=== PATIENT | female | born 1970 | race Caucasian/White ===

== ENCOUNTER 2022-08-24 20:45 | Emergency (ER) | payer OTHER, SELFPAY ==
--- NOTE | ~2022-08-24 | CT_ITS ---
EXAMINATION: CT lumbar spine wo con DATE: 08/24/2022 22:50 INDICATION: Lower back pain w/ leg weakness, hx sciatica . TECHNIQUE: Computed tomography (CT) of the lumbar spine was performed without intravenous contrast. A utomated exposure control and iterative reconstruction technique were employed. The dose-length produ ct was 1175.80 mGy-cm. COMPARISON: None. FINDINGS: Lumbar scoliosis. 5 nonrib-bearing lumbar-type vertebral bodies. Pedicles intact. Normal ve rtebral body alignment. Vertebral body heights preserved. Multilevel degenerative disc disease, sever e at L3-4 and L5-S1. Large lateral bridging osteophytes at L3-4. Multilevel facet arthropathy. Severe neural foraminal narrowing on the left at L3-4 and on the right at L5-S1. Moderate central canal keo nosis at L2-3. Severe central canal stenosis at L3-4 and L4-5. Right adrenal adenoma. Bilateral perin ephric stranding. IMPRESSION: No acute fracture or traumatic malalignment in the lumbar spine. Reviewed, dictated and finalized at location K. [employer] LINGUIST
[2022-08-24 20:50] VITALS: BP 158/107; PULSE 111; RESP 18; TEMP 37; O2SAT 98
--- NOTE | 2022-08-24 22:14 | ED.GENADULT ---
HPI - General Adult General Chief complaint: Extremity Problem,Nontraumatic Stated complaint: leg weakness, x 2 weeks sciatica Time Seen by Provider: 08/24/22 21:48 History of Present Illness HPI narrative: This is a 52-year-old female presenting ED with a chief complaint of lower back pain and leg weakness. Patient says that she had sciatica several weeks ago. Since then she has started to have difficulty while walking. She says when she walks her feet start to feel heavy and she gets a heavy feeling in her calves. The pain is alleviated by bending over and she can walk while pushing a wheelchair a grocery cart without any symptoms. Patient did have 1 episode walking in ED where she tripped due to the leg heaviness. Patient denies history of cancer, fever, chills, IV drug abuse, traumatic injury, urinary retention or bowel incontinence. She denies saddle anesthesia. Related Data Home Medications Medication Instructions Recorded Confirmed aspirin 81 mg tablet,delayed 81 mg PO DAILY 01/03/21 01/03/21 release (Adult Low Dose Aspirin) cholecalciferol (vitamin D3) 10 10 mcg PO DAILY 01/03/21 01/03/21 mcg (400 unit) capsule gabapentin 100 mg capsule 100 mg PO DAILY 01/03/21 01/03/21 lisinopril 20 mg tablet 20 mg PO DAILY 01/03/21 01/03/21 metformin 500 mg tablet 500 mg PO DAILY 01/03/21 01/03/21 elggbubthcrs-Kz-pzgx-minerals tablet PO 01/03/21 01/03/21 Allergies Allergy/AdvReac Type Severity Reaction Status Date / Time No Known Allergies Allergy Unknown Verified 08/24/22 20:47 Review of Systems Review of Systems: CONSTITUTIONAL: Denies night sweats. EYES: No eye pain ENT: Denies rhinorrhea CARDIOVASCULAR: Denies palpitations RESPIRATORY: Denies hemoptysis GASTROINTESTINAL: Denies hematemesis GENITOURINARY: Denies hematuria. SKIN: Denies rash MUSCULOSKELETAL: Denies myalgia. NEUROLOGIC: Denies weakness. PSYCHIATRIC: Denies delusions PMFSH Past Medical History Medical History Diabetes Essential hypertension Family History Family History Father Depression Hypertension Family history of alcoholism Family history of heart disease in male family member before age 55 Family history of coronary artery disease Heart disease Sibling Depression Hypertension Family history of alcoholism Family history of heart disease in male family member before age 55 Heart disease Mother Hypertension Family history of arthritis Grandparent Cancer Social History Social History Social History: vaping Smoking status: Former smoker Tobacco type: e-cigarettes/vaping Second hand tobacco smoke exposure: Yes Alcohol intake: current Alcohol use details: 2 per month Exam Narrative: APPEARANCE: No apparent distress. Head: atraumatic. EYES: EOMI, NOSE: Atraumatic NECK: Trachea midline RESPIRATORY: No increased rate of breathing CARDIOVASCULAR: RRR, ABDOMINAL: Non-distended MUSCULOSKELETAl: No obvious deformities NEURO: Alert. Cranial nerves 2-12 grossly intact. Sensation light touch, motor function cerebellar function intact for 4 extremities. patient has a marching gait. SKIN:: Warm, dry. Normal color PSYCHIATRIC: Normal affect Course Vital Signs Vital signs: Vital Signs Temperature 98.6 F 08/24/22 20:50 Pulse Rate 111 H 08/24/22 20:50 Respiratory Rate 18 08/24/22 20:50 Blood Pressure 158/107 H 08/24/22 20:50 Pulse Oximetry 98 08/24/22 20:50 Oxygen Delivery Room Air 08/24/22 20:50 Temperature 98.6 F 08/24/22 20:50 Pulse Rate 111 H 08/24/22 20:50 Respiratory Rate 18 08/24/22 20:50 Blood Pressure 158/107 H 08/24/22 20:50 Pulse Oximetry 98 08/24/22 20:50 Oxygen Delivery Room Air 08/24/22 20:50 Medical Decision Making [facility] Narrative Medical decision making narrative: This i
[2022-08-24 22:32] LABS: Basophils Percent Auto 0.4 % (0.2-1.2); Eosinophils Absolute Auto 0.1 K/mm3 (0-0.3); Hemoglobin 13.6 g/dL (12.0-15.0); Immature Granulocyte Absolute 0.03 K/mm3 (0.00-0.031); Immature Granulocyte Percent A 0.3 % (0-0.5); Lymphocytes Absolute Auto 2.43 K/mm3 (0.9-3.2); Lymphocytes Percent Auto 26.2 % (18.3-44.2); Mean Corpuscular HGB Conc 32.4 g/dl (32-36); Mean Corpuscular Hemoglobin 28.6 pg (26-34); Mean Corpuscular Volume 88.2 fl (80-100); Mean Platelet Volume 9.8 fl (7.4-10.4); Monocytes Absolute Auto 0.6 K/mm3 (0.1-0.6); Monocytes Percent Auto 6.6 % (2.6-8.5); Neutrophils Absolute Auto 6.1 K/mm3 (1.3-6.7); Neutrophils Percent Auto 65.5 % (45.5-73.1); Platelet Count Result 261 k/mm3 (150-375); Red Blood Count 4.76 M/mm3 (4.2-5.4); Red Cell Distribution Width 13.8 % (11.5-14.5); White Blood Count 9.3 K/mm3 (4.5-10.0)
[2022-08-24 22:43] LABS: Anion Gap 10 mmol/L (8-16); Blood Urea Nitrogen 17 mg/dL (7-17); Calcium 9.1 mg/dL (8.4-10.2); Carbon Dioxide 24 mmol/L (22-30); Chloride 103 mmol/L (98-107); Estimated Glomerular Filt Rate > 60; Glucose 219 mg/dL (65-110); Potassium 3.9 mmol/L (3.4-5.0); Prothrombin Time 12.7 Seconds (11.1-14.7); Sodium 137 mmol/L (137-145)
[2022-08-24 22:44] LABS: Partial Thromboplastin Time 21.9 SECONDS (22.3-36.8)
== END 2022-08-25 01:47 | disposition home or self-care (01) ==
PROVIDERS: Emergency Provider Emergency Medicine; PCP Internal Medicine
DX: M48.061 Spinal stenosis, lumbar region without neurogenic claudication (principal); I10 Essential (primary) hypertension; E11.9 Type 2 diabetes mellitus without complications; Z79.4 Long term (current) use of insulin; Z79.82 Long term (current) use of aspirin; Z87.891 Personal history of nicotine dependence
CPT/HCPCS: 36415; 72131; 80048; 83735; 85025; 85610; 85730; 99284

== ENCOUNTER 2022-08-27 14:39 | Emergency (ER) | payer OTHER, SELFPAY ==
[2022-08-27 15:02] VITALS: BP 150/72; PULSE 104; RESP 18; TEMP 36.7; O2SAT 98
--- NOTE | 2022-08-27 15:25 | ED.BACK ---
HPI - Back Pain/Injury General Chief Complaint: Back Pain/Injury Stated Complaint: back and bilateral leg pain Source: patient Mode of arrival: wheelchair Limitations: physical limitation History of Present Illness HPI Narrative: This is a 52 year old female that has been complaining of severe back pain and was in the emergency room 2 night ago and cT scan showed DJD and no acute fractures. Patient informed me that she received a call from Dr. Pozo's office and schedule an MRI call placed to Dr. Pozo's office and they scheduled an appointment for her to see them on September 24 she is on a waiting list to have any cancellations they will call her sooner. Patient states that her legs feel like they are shaky and she is very upset because she is not able to work and she needs the money. Patient is a nursing faculty at a residential when asked how I can help her patient informs me she needs me to make her be able to walk without any pain. Related Data Home Medications Medication Instructions Recorded Confirmed aspirin 81 mg tablet,delayed 81 mg PO DAILY 01/03/21 08/27/22 release (Adult Low Dose Aspirin) cholecalciferol (vitamin D3) 10 10 mcg PO DAILY 01/03/21 08/27/22 mcg (400 unit) capsule gabapentin 100 mg capsule 100 mg PO DAILY 01/03/21 08/27/22 lisinopril 20 mg tablet 20 mg PO DAILY 01/03/21 08/27/22 metformin 500 mg tablet 500 mg PO DAILY 01/03/21 08/27/22 aqupvmhhbzqf-Ee-oupt-minerals 1 tablet PO DAILY 01/03/21 08/27/22 Allergies Allergy/AdvReac Type Severity Reaction Status Date / Time No Known Allergies Allergy Unknown Verified 08/27/22 15:10 Review of Systems Review of Systems: leg pain All systems reviewed & are unremarkable except as noted in HPI and below PMFSH Past Medical History Medical History Diabetes Essential hypertension Family History Family History Father Depression Hypertension Family history of alcoholism Family history of heart disease in male family member before age 55 Family history of coronary artery disease Heart disease Sibling Depression Hypertension Family history of alcoholism Family history of heart disease in male family member before age 55 Heart disease Mother Hypertension Family history of arthritis Grandparent Cancer Social History Social History Social History: vaping Smoking status: Former smoker Tobacco type: e-cigarettes/vaping Second hand tobacco smoke exposure: Yes Alcohol intake: current Alcohol use details: 2 per month Comments At time as signature, I have reviewed and agree with nursing past medical, social, surgical and family history. Please see nursing chart for further information. There is no relevant family history pertinent to the presenting complaint. Exam Narrative: GENERAL: Dishevelled, well-nourished, and in no acute distress. HEAD:Normocephalic, atraumatic. EYES: PERRLA and EOMI. ENT: Nares clear, no rhinorrhea or epistaxis. Mucous membranes moist. CHEST: Clear to auscultation. No respiratory distress. HEART: Regular rate and rhythm Normal peripheral pulses. ABDOMEN: Soft, nontender, nondistended, normal active bowel sounds. EXTREMITIES:decreased range of motion. No edema. Pain that shoots up her body const down her leg and she is sitting in the chair especially the right side SKIN: Warm, dry, no rash. NEURO: No focal deficits. Alert and oriented x3. Course Course Level of Care: Express Care Visit Vital Signs Vital signs: Vital Signs Temperature 98.0 F 08/27/22 15:02 Pulse Rate 104 H 08/27/22 15:02 Respiratory Rate 18 08/27/22 15:02 Blood Pressure 150/72 H 08/27/22 15:02 Pulse Oximetry 98 08/27/22 15:02 Oxygen Delivery Room Air 08/27/22 15:02 Temperature 98.0 F 08/27/22 15:02 Pulse Rate 104 H 08/27
== END 2022-08-27 15:45 | disposition home or self-care (01) ==
PROVIDERS: Emergency Provider Nurse Practitioner Family
DX: M54.31 Sciatica, right side (principal); M54.9 Dorsalgia, unspecified; E11.9 Type 2 diabetes mellitus without complications; I10 Essential (primary) hypertension; Z79.82 Long term (current) use of aspirin; Z79.84 Long term (current) use of oral hypoglycemic drugs
CPT/HCPCS: 99213; G0463

== ENCOUNTER 2022-10-10 06:58 | Outpatient (CLI) | payer OTHER, SELFPAY ==
--- NOTE | ~2022-10-10 | MR_ITS ---
EXAMINATION: MR lumbar spine wo con DATE: 10/10/2022 07:35 INDICATION: Low back pain. Left leg numbness and heaviness. TECHNIQUE: Magnetic resonance imaging (MRI) of the lumbar spine was performed without intravenous con trast. Sequences included sagittal T2-weighted FSE, sagittal T2-weighted FS FSE, sagittal T1-weighted FSE, and axial T2-weighted FSE. COMPARISON: Lumbar spine CT 08/24/2022 FINDINGS: There is 13 degrees dextroscoliosis of lumbar spine. There is mild chronic anterior wedging of T11 and T12 vertebral bodies. There is mildly decreased disc height at L2-L3, severely decreased disc height at L3-L4, mildly decreased disc height at L4-L5, and severely decreased disc height at L5 -S1 with endplate remodeling. The distal spinal cord signal intensity is normal. The conus medullaris is at T12-L1. The following disc levels are specifically discussed: L1-L2: The disc is bulging. There is moderate right and mild left facet joint osteoarthritis. There i s mild bilateral neural foraminal stenosis. There is mild central canal stenosis. L2-L3: The disc is bulging and has an annular fissure. There is moderate bilateral facet joint osteoa rthritis. There is mild bilateral neural foraminal stenosis. There is mild central canal stenosis. L3-L4: The disc is bulging and has an annular fissure. There is severe bilateral facet joint osteoart hritis. There is mild right and moderate left neural foraminal stenosis. There is moderate central ca nal stenosis. There is asymmetric severe stenosis of left lateral recess. L4-L5: The disc is bulging with superimposed central extrusion. There is severe bilateral facet joint osteoarthritis. There is moderate right and mild left neural foraminal stenosis. There is mild centr al canal stenosis. L5-S1: The disc is bulging and has an annular fissure. There is severe bilateral facet joint osteoart hritis. There is moderate right and mild left neural foraminal stenosis. There is mild central canal stenosis. IMPRESSION: 1. Severe lumbar spondylosis. 2. Lumbar dextroscoliosis. Reviewed, dictated and finalized at location A. NG MACHINE ADJUSTER
--- NOTE | ~2022-10-10 | XR_ITS ---
EXAMINATION: XR lumbar spine min 4V DATE: 10/10/2022 07:45 INDICATION: Dorsalgia, unspecified. TECHNIQUE: 5 views of lumbar spine were obtained. COMPARISON: Lumbar spine CT 08/24/2022 FINDINGS: There is 13 degrees dextroscoliosis of lumbar spine. Vertebral body heights are normal. The re is mildly decreased disc height at L2-L3, severely decreased disc height at L3-L4, mildly decrease d disc height at L4-L5, and severely decreased disc height at L5-S1 with endplate remodeling. There i s multilevel facet joint osteoarthritis, severe at most lumbar levels. Surgical clips in the right up per quadrant are likely from cholecystectomy. IMPRESSION: 1. Severe lumbar spondylosis. 2. Lumbar dextroscoliosis. Reviewed, dictated and finalized at location A. LIFE REFUGE SPECIALIST
== END 2022-10-10 06:59 | disposition home or self-care (01) ==
PROVIDERS: PCP Internal Medicine; Visit Provider Nurse Practitioner Adult Health
DX: M47.896 Other spondylosis, lumbar region (principal)
CPT/HCPCS: 72110; 72148